=== PATIENT | female | born 1955 | race Caucasian/White ===

== ENCOUNTER 2024-01-14 09:54 | Outpatient (CLI) | payer MEDICARE, OTHER, SELFPAY ==
--- NOTE | 2024-01-14 10:04 | CT_ITS ---
FINAL REPORT TECHNIQUE: Multiple axial CT sections were performed from the foramen magnum to the vertex. Coronal and sagittal reformatted images were also obtained. Precontrast and postcontrast injection images were obtained. This study was performed with technique to keep radiation doses as low as reasonably achievable, (ALARA). Individualized dose reduction techniques using automated exposure control or adjustment of mA and/or kV according to the patient size were employed. CLINICAL HISTORY: MEMORY LOSS COMPARISON: None FINDINGS: The ventricles are normal in size. Mild generalized atrophy is present. There is no evidence of hemorrhage. No masses are identified. No extra-axial fluid collection is seen. There is sinusitis in the maxillary and ethmoid sinuses bilaterally. No osseous abnormality is seen on the bone window images. Postcontrast images demonstrate no abnormal enhancement. IMPRESSION: Bilateral maxillary and ethmoid sinusitis. Mild generalized atrophy without acute intracranial abnormality. Reviewed, Interpreted and Dictated by Margie Ty MD Transcribed by Rosario Marcus Authenticated and [facility]
[2024-01-14 10:46] LABS: Blood Urea Nitrogen 14 mg/dl (7-17); Estimated Glomerular Filt Rate 71 ml/min (>60); GFR (African American) 86 ML/MIN (>60)
[2024-01-14] MEDS: SODIUM CHLORIDE 0.9% 10ML SYR (RAD ONLY) 10 ML IV (11:38)
[2024-01-14] MEDS: IOPAMIDOL-300 (61%) 100ML VIAL 100 ML IV (11:38)
[2024-02-06 13:00] LABS: Miscellaneous Test SCANNED IMAGE
== END 2024-01-14 23:59 | disposition home or self-care (01) ==
PROVIDERS: PCP Nurse Practitioner Family; Visit Provider Nurse Practitioner Family
DX: R41.3 Other amnesia (principal)
CPT/HCPCS: 36415; 70470; 82565; 84520; Q9967

== ENCOUNTER 2024-03-19 13:20 | Outpatient (CLI) | payer MEDICARE, OTHER, SELFPAY ==
--- NOTE | 2024-03-19 13:36 | ECG_ITS ---
APPROVED REPORT Exam: Resting ECG HR:99 bpm ECG Measurements Heart Rate 99 AXES NJ 118 P 269 QRSd 78 QRS 55 QT 331 T 52 QTc 387 Conclusion Sinus RHYTHM Atrial abnormality UNCONFIRMED REPORT Electronically signed by : Edis Blackmon MD 03/20/2024 16:28:53
[2024-03-19 13:57] LABS: Basophils # 0.1 K/mm3 (0-0.2); Eosinophils # 0.1 K/mm3 (0.0-0.4); Eosinophils % 1.8 % (0.1-12.0); Hematocrit 46.5 % (37.0-47.0); Hemoglobin 15.6 g/dL (12.2-16.2); Lymphocytes # 1.5 K/mm3 (0.7-4.5); Lymphocytes % 22.2 % (10-50); Mean Corpuscular HGB Conc 33.5 g/dL (31.8-35.4); Mean Corpuscular Hemoglobin 31.3 pg (27.0-31.2); Mean Corpuscular Volume 93.6 fl (81-99); Mean Platelet Volume 8.2 fl (7.4-10.4); Monocytes # 0.3 K/mm3 (0.1-1.0); Monocytes % 4.7 % (1.7-9.3); Neutrophils # 4.7 K/mm3 (1.8-7.8); Neutrophils % 70.2 % (37.0-80.0); Platelet Count 178 K/mm3 (142-424); Red Blood Count 4.97 M/mm3 (4.20-5.40); Red Cell Distribution Width 13.3 % (11.5-17.5); White Blood Count 6.6 K/mm3 (4.8-10.8)
[2024-03-19 14:28] LABS: Erythrocyte Sedimentation Rate 6 mm/hr (0-30)
[2024-03-19 15:59] LABS: Alanine Aminotransferase 12 U/L (12-78); Albumin/Globulin Ratio 1.5 (1.1-1.8); Alkaline Phosphatase 69 U/L (38-126); Anion Gap 11.2 mEq/L (5-15); Aspartate Amino Transferase 20 U/L (14-36); Bilirubin,Total 0.6 mg/dl (0.2-1.3); Blood Urea Nitrogen 12 mg/dl (7-17); Calcium 9.8 mg/dl (8.4-10.2); Carbon Dioxide 24 mmol/L (22.0-30.0); Chloride 105 mmol/L (98-107); Estimated Glomerular Filt Rate 82 ml/min (>60); GFR (African American) 100 ML/MIN (>60); Globulin 2.6 g/dL (1.3-3.2); Glucose 91 mg/dl (74-100); Potassium 4.2 mmoL/L (3.5-5.1); Sodium 136 mmol/L (136-145); Total Protein,Serum 6.6 g/dl (6.3-8.2)
[2024-03-19 16:28] LABS: Thyroid Stimulating Hormone 2.24 uIU/mL (0.465-4.68)
[2024-03-19 17:03] LABS: Vitamin B12 653 pg/mL (239-931)
[2024-03-19 17:06] LABS: Folate 8.15 ng/mL
[2024-03-21 12:47] LABS: Rapid Plasma Reagin Ab Titer Non Reactive titer (NonRea<1:1)
[2024-03-23 15:25] LABS: Antiparietal Cell Antibody 1.5 Units (0.0-20.0)
[2024-03-23 20:08] LABS: Vitamin B1 100.9 nmol/L (66.5-200.0)
== END 2024-03-19 23:59 | disposition home or self-care (01) ==
LOC: LAB 13:22
PROVIDERS: PCP Nurse Practitioner Family; Visit Provider Specialist
DX: R41.3 Other amnesia (principal); E53.8 Deficiency of other specified B group vitamins; G93.49 Other encephalopathy
CPT/HCPCS: 36415; 80053; 82607; 82746; 83516; 84207; 84425; 84443; 85025; 85651; 86340; 86593; 93005